=== PATIENT | female | born 1980 | race Caucasian/White ===

== ENCOUNTER 2017-06-08 12:31 | Emergency (ER) | payer SELFPAY ==
[~2017-06-08] VITALS: Ht 167.6 cm; Wt 80.7 kg
--- NOTE | 2017-06-08 12:31 | NUR ---
Patient was BIBA and taken to bed 08 via gurney.
[2017-06-08 12:34] VITALS: BP 142/94
[2017-06-08] MEDS ORDERED: GLU500 PO (12:38)
[2017-06-08] MEDS ORDERED: KETOROLAC 30 MG/ML VIAL IM ONE (12:50)
--- NOTE | 2017-06-08 13:05 | NUR ---
Patient taken to CT via gurney.
--- NOTE | 2017-06-08 13:33 | NUR ---
Patient back from CT via gurney.
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
[2017-06-08 15:00] VITALS: BP 108/58
== END 2017-06-08 15:00 | disposition home or self-care (01) ==
LOC: MED 12:31
DX: S20.419A Abrasion of unspecified back wall of thorax, initial encounter (principal); M25.511 Pain in right shoulder; R51 Headache; R10.9 Unspecified abdominal pain; Z79.84 Long term (current) use of oral hypoglycemic drugs; Y04.2XXA Assault by strike against or bumped into by another person, initial encounter; Y93.89 Activity, other specified; Y92.511 Restaurant or cafe as the place of occurrence of the external cause; Y99.8 Other external cause status
CPT/HCPCS: 70450; 73030; 74176; 96372; 99284; J1885